=== PATIENT | male | born 1980 | race Caucasian/White ===

== ENCOUNTER 2018-06-12 11:29 | Emergency (ER) | payer BC ==
[2018-06-12] MEDS ORDERED: NA CHLORIDE 0.9% 1,000 ML ONE (13:04)
[2018-06-12 13:28] LABS: MCH 29.5 pg (27.0-35.0); MCV 86.5 fL (80-100); RBC Red Blood Cell Count 5.09 M/uL (4.33-5.43)
[2018-06-12 13:29] LABS: Absolute Lymphocytes (CBC) 2.5 K/uL (0.7-4.9); Absolute Monocytes 1.1 K/uL (0.1-1.3); Absolute Neutrophil 5.9 K/uL (1.8-8.0); Basophils % 0.2 % (0-1.3); Eosinophils % 1.8 % (0-4.4); Lymphocytes % 25.6 % (15.3-44.8); MPV 10.6 fL (7.6-11.3); Monocytes % 11.1 % (3.3-12.3)
[2018-06-12 14:02] LABS: ALT/SGPT 36 U/L (12-78); AST/SGOT 24 U/L (15-37); Albumin 3.6 g/dL (3.4-5.0); Alkaline Phosphatase 69 U/L (45-117); BUN Blood Urea Nitrogen 12 mg/dL (7-18); Bicarbonate 27 mmol/L (21-32); Bilirubin Direct < 0.1 mg/dL (0-0.2); Bilirubin Total 0.4 mg/dL (0.2-1.0); Glucose Level 105 mg/dL (74-106); Lipase 179 U/L (73-393); Potassium 4.2 mmol/L (3.5-5.1); Protein, Total 7.6 g/dL (6.4-8.2); Sodium Level 140 mmol/L (136-145)
--- NOTE | 2018-06-12 15:06 | RAD REPORT ---
EXAM DESCRIPTION: CT - Abdomen Pelvis W Contrast - 06/12/2018 2:17 pm CLINICAL HISTORY: Abdominal pain, pelvic pain, rectal bleeding COMPARISON: None. TECHNIQUE: Biphasic, helical CT imaging of the abdomen and pelvis was performed following 100 ml non -ionic IV contrast. No oral contrast. All CT scans are performed using dose optimization technique as appropriate and may include automated exposure control or mA/KV adjustment according to patient size. FINDINGS: A 13 millimeter round pulmonary nodule is present posterior lower right lung field with a dense central calcification. This has the typical appearance for a granuloma. No worrisome lung base finding. No pericardial effusion. Diffuse fatty infiltration of the liver present. No focal liver lesions seen. Spleen and pancreas cole w no suspicious findings. Gallbladder and biliary tree are also without suspicious finding. Symmetric renal function is seen with no hydronephrosis or suspicious renal mass. No pyelonephritis o r acute renal parenchymal process. New right adrenal abnormality. A 2 centimeter left adrenal mass is present showing 25 Hounsfield unit attenuation value. Contracted urinary bladder limits assessment. No bladder calculus. Prostate and seminal vesicles show no suspicious finding. No dilated bowel loops or bowel wall thickening. No appendicitis. No acute GI process seen. No free a ir, free fluid or inflammatory stranding. No mass or bulky lymphadenopathy. A very small umbilical h ernia present. No suspicious bony findings. IMPRESSION: No appendicitis, free air or other surgically emergent finding. No acute GI process seen . Diffuse fatty infiltration of the liver. The 2 centimeter left adrenal gland mass is present. Although the characteristics are not definitive, this is most likely an incidental adenoma.
--- NOTE | 2018-06-12 15:23 | EDPHYS ---
Physician Documentation [facility] Name: Ramon Thurman Age: 38 yrs Sex: Male : 1980 Arrival Date: 06/12/2018 Time: 11:31 Bed 13 Private MD: None, None ED Physician Ricky Coles HPI: 06/12 12:40 This 38 yrs old Male presents to ER via Ambulatory with complaints of Bloody jmm Stools, Abdominal Pain. 12:40 The patient presents to the emergency department with rectal bleeding, bright red blood jmm with bowel movement. Onset: The symptoms/episode began/occurred acutely, today. Abdominal pain: described as achy. Associated signs and symptoms: Pertinent negatives: diarrhea, fever. This is a 38 year old male with no chronic medical conditions that presents to the ED with abdominal pain and bright red blood on bowel movement earlier today. patient denies vomiting. states that he ate chicken last night. denies fever. . Historical: - Allergies: 12:01 No Known Allergies; sv - PMHx: 12:01 None; sv - PSHx: 12:01 None; sv - Immunization history:: Flu vaccine is not up to date. - Social history:: Smoking status: Patient uses tobacco products, cigars. - Ebola Screening: : No symptoms or risks identified at this time. ROS: 12:40 Constitutional: Negative for fever, chills, and weight loss, Cardiovascular: Negative jmm for chest pain, palpitations, and edema, Respiratory: Negative for shortness of breath, cough, wheezing, and pleuritic chest pain. 12:40 Back: Negative for injury and pain, : Negative for injury, bleeding, discharge, and swelling, MS/Extremity: Negative for injury and deformity, Skin: Negative for injury, rash, and discoloration, Neuro: Negative for headache, weakness, numbness, tingling, and seizure, Psych: Negative for depression, anxiety, suicide ideation, homicidal ideation, and hallucinations. 12:40 Abdomen/GI: Positive for rectal bleeding. 12:40 All other systems are negative. Exam: 12:40 Constitutional: This is a well developed, well nourished patient who is awake, alert, jmm and in no acute distress. Head/Face: atraumatic. Eyes: EOMI, no conjunctival erythema appreciated ENT: Moist Mucus Membranes Neck: Trachea midline, Supple Chest/axilla: Normal chest wall appearance and motion. Cardiovascular: Regular rate and rhythm. No edema appreciated Respiratory: Normal respirations, no respiratory distress appreciated 12:40 Back: Normal ROM Skin: General appearance color normal MS/ Extremity: Moves all extremities, no obvious deformities appreciated, no edema noted to the lower extremities Neuro: Awake and alert, normal gait Psych: Behavior is normal, Mood is normal, Patient is cooperative and pleasant 12:40 Abdomen/GI: Inspection: obese Bowel sounds: normal, Palpation: soft, nontender, in all quadrants, Rectal exam: Stool: grossly bloody. Vital Signs: 12:01 BP 155 / 96; Pulse 91; Resp 20; Temp 97.4; Pulse Ox 99% ; Weight 124.74 kg; Height 5 sv ft. 10 in. (177.80 cm); Pain 0/10; 13:00 BP 123 / 78; Pulse 75; Resp 16; Pulse Ox 100% on R/A; em 13:49 BP 121 / 76; Pulse 80; Resp 16; Pulse Ox 99% on R/A; Pain 0/10; em 15:00 BP 130 / 68; Pulse 82; Resp 16; Pulse Ox 99% on R/A; Pain 0/10; em 12:01 Body Mass Index 39.46 (124.74 kg, 177.80 cm) sv MDM: 12:37 Patient medically screened. [facility] 15:21 Data reviewed: vital signs, nurses notes. Counseling: I had a detailed discussion with donnie the patient and/or guardian regarding: the historical points, exam findings, and any diagnostic results supporting the discharge/admit diagnosis, lab results, radiology results, the need for outpatient follow up, to return to the emergency department if symptoms worsen or persist or if there are any questions or concerns that arise at home. 15:21 Data reviewed: lab test result(s), radiologic studies. [facility] 15:21 ED course: Patient's abdomen is benign. Ct negative. Hemodynamically stable. Normal VS. [facility] Patient advised to follow up with GI for further evaluation. Patient understood and agrees with the plan of care. . 06/12 12:43 Order name: Basic Metabolic Panel; Complete Time: 14:04 [facility] 06/12 12:43 Order name: CBC with Diff; Complete Time: 13:34 [facility] 06/12 12:43 Order name: Creatinine for Radiology; Complete Time: 14:04 [facility] 06/12 12:43 Order name: Hepatic Function; Complete Time: 14:04 [facility] 06/12 12:43 Order name: Lipase; Complete Time: 14:04 [facility] 06/12 12:43 Order name: Type And Screen; Complete Time: 14:40 [facility] 06/12 12:43 Order name: IV Saline Lock; Complete Time: 13:21 [facility] 06/12 12:43 Order name: Labs collected and sent; Complete Time: 13:21 [facility] 06/12 12:43 Order name: Hemacult; Complete Time: 13:21 [facility] 06/12 12:43 Order name: CT Abd/Pelvis - W/Contrast; Complete Time: 15:07 [facility] 06/12 13:18 Order name: Occult Blood--Ancillary; Complete Time: 13:31 bd 06/12 13:32 Order name: Occult Blood--Ancillary bd 06/12 13:48 Order name: ABO/RH no charge; Complete Time: 14:04 EDMS Administered Medications: 13:10 Drug: NS 0.9% 1000 ml Route: IV; Rate: 1 bolus; Site: right antecubital; em 14:30 Follow up: IV Status: Completed infusion; IV Intake: 1000ml em Disposition: 06/13 15:35 Co-signature as Attending Physician, Ricky Coles MD. Disposition: 06/12/18 15:22 Discharged to Home. Impression: Gastrointestinal hemorrhage, unspecified. - Condition is Stable. - Discharge Instructions: Gastrointestinal Bleeding, Rectal Bleeding, [id number]. - Prescriptions for Colace 100 mg Oral Tablet - take 1 tablet by ORAL route every 12 hours; 14 tablet. Anusol- HC 25 mg Rectal Suppository - insert 1 suppository by RECTAL route every 12 hours As needed; 20 suppository. - Medication Reconciliation Form, Thank You Letter, Antibiotic Education, Prescription Opioid Use form. - Follow up: Aman Asif MD; When: 2 - 3 days; Reason: Recheck today's complaints, Continuance of care, Re-evaluation by your physician. Signatures: Dispatcher [employer] EDMS Marcella Rodriguez RN RN Kingsley Bustillo PA PA Pietro Sutherland, GLASS BEVELER GLASS BEVELER em Ricky Coles MD MD Corrections: (The following items were deleted from the chart) 06/12 14:12 14:10 This 38 yrs old Male presents to ER via Ambulatory with complaints of jmm Bloody Stools, Abdominal Pain. jmm 15:41 15:22 06/12/2018 15:22 Discharged to Home. Impression: Gastrointestinal hemorrhage, em unspecified. Condition is Stable. Forms are Medication Reconciliation Form, Thank You Letter, Antibiotic Education, Prescription Opioid Use. Follow up: Aman Asif; When: 2 - 3 days; Reason: Recheck today's complaints, Continuance of care, Re-evaluation by your physician. jmm
--- NOTE | 2018-06-12 15:23 | ER ---
Nurse's Notes [facility] Name: Ramon Thurman Age: 38 yrs Sex: Male : 1980 Arrival Date: 06/12/2018 Time: 11:31 Bed 13 Private MD: None, None Diagnosis: Gastrointestinal hemorrhage, unspecified Presentation: 06/12 12:00 Presenting complaint: Patient states: c/o nausea, dark red rectal bleeding started sv today. Transition of care: patient was not received from another setting of care. Onset of symptoms was June 12, 2018. Care prior to arrival: None. 12:00 Method Of Arrival: Ambulatory sv 12:00 Acuity: MORRIS 3 sv 12:30 Risk Assessment: Do you want to hurt yourself or someone else? Patient reports no em desire to harm self or others. Initial Sepsis Screen: Does the patient meet any 2 criteria? No. Patient's initial sepsis screen is negative. Does the patient have a suspected source of infection? No. Patient's initial sepsis screen is negative. Triage Assessment: 12:00 General: Appears in no apparent distress. uncomfortable, Behavior is calm, cooperative, sv appropriate for age. Pain: Denies pain. Neuro: Level of Consciousness is awake, alert, obeys commands, Oriented to person, place, time, situation, Moves all extremities. Full function Gait is steady. Respiratory: Respiratory effort is even, unlabored, Respiratory pattern is regular, symmetrical. GI: Reports diarrhea, rectal bleeding, nausea. Historical: - Allergies: 12:01 No Known Allergies; sv - PMHx: 12:01 None; sv - PSHx: 12:01 None; sv - Immunization history:: Flu vaccine is not up to date. - Social history:: Smoking status: Patient uses tobacco products, cigars. - Ebola Screening: : No symptoms or risks identified at this time. Screenin:17 Abuse screen: Denies threats or abuse. Nutritional screening: No deficits noted. em Tuberculosis screening: No symptoms or risk factors identified. Fall Risk None identified. Assessment: 12:30 General: Appears in no apparent distress. comfortable, Behavior is calm, cooperative. em Pain: Denies pain. Neuro: Level of Consciousness is awake, alert, obeys commands, Oriented to person, place, time, situation, Speech is normal, Denies weakness dizziness. Cardiovascular: Capillary refill < 3 seconds Patient's skin is warm and dry. Respiratory: Airway is patent Respiratory effort is even, unlabored, Respiratory pattern is regular, symmetrical. GI: Abdomen is round non-distended, Bowel sounds present X 4 quads. Reports bloody stool, Patient currently denies nausea, vomiting. : No signs and/or symptoms were reported regarding the genitourinary system. EENT: No signs and/or symptoms were reported regarding the EENT system. Derm: Skin is intact, Skin is pink, warm \T\ dry. Musculoskeletal: Capillary refill < 3 seconds, Range of motion: intact in all extremities. 12:30 Reassessment: I agree with assessment completed by Pietro Muller LVN . aa5 13:48 Reassessment: Patient appears in no apparent distress at this time. Patient and/or em family updated on plan of care and expected duration. Pain level reassessed. Patient is alert, oriented x 3, equal unlabored respirations, skin warm/dry/pink. Patient denies pain at this time. 15:09 Reassessment: Patient appears in no apparent distress at this time. Patient and/or em family updated on plan of care and expected duration. Pain level reassessed. Patient is alert, oriented x 3, equal unlabored respirations, skin warm/dry/pink. Patient denies pain at this time. Vital Signs: 12:01 BP 155 / 96; Pulse 91; Resp 20; Temp 97.4; Pulse Ox 99% ; Weight 124.74 kg; Height 5 sv ft. 10 in. (177.80 cm); Pain 0/10; 13:00 BP 123 / 78; Pulse 75; Resp 16; Pulse Ox 100% on R/A; em 13:49 BP 121 / 76; Pulse 80; Resp 16; Pulse Ox 99% on R/A; Pain 0/10; em 15:00 BP 130 / 68; Pulse 82; Resp 16; Pulse Ox 99% on R/A; Pain 0/10; em 12:01 Body Mass Index 39.46 (124.74 kg, 177.80 cm) sv ED Course: 11:31 Patient arrived in ED. mr 11:32 None, None is Private Physician. mr 12:01 Triage completed. sv 12:01 Arm band placed on. sv 12:02 Kingsley Avendano PA is PHCP. jmm 12:02 Ricky Coles MD is Attending Physician. m 12:17 Pietro Muller LVN is Primary Nurse. em 12:17 Patient has correct armband on for positive identification. Placed in gown. Bed in low em position. Call light in reach. 13:00 Initial lab(s) drawn, by me, sent to lab. Inserted saline lock: 20 gauge in right em antecubital area, using aseptic technique. Blood collected. 13:37 Radiology exam delayed due to lab results not completed at this time. (BUN/Creatinine). bq 14:15 CT completed. Patient moved to CT via wheelchair. Patient moved back from CT. bq 14:16 CT Abd/Pelvis - W/Contrast In Process Unspecified. EDMS 15:21 Aman Asif MD is Referral Physician. m 15:38 No provider procedures requiring assistance completed. IV discontinued, intact, em bleeding controlled, No redness/swelling at site. Pressure dressing applied. Administered Medications: 13:10 Drug: NS 0.9% 1000 ml Route: IV; Rate: 1 bolus; Site: right antecubital; em 14:30 Follow up: IV Status: Completed infusion; IV Intake: 1000ml em Intake: 14:30 IV: 1000ml; Total: 1000ml. em Outcome: 15:22 Discharge ordered by . m 15:38 Discharged to home ambulatory, with family. em 15:38 Condition: good 15:38 Discharge instructions given to patient, family, Instructed on discharge instructions, follow up and referral plans. medication usage, Demonstrated understanding of instructions, follow-up care, medications, Prescriptions given X 2. 15:41 Patient left the ED. em Signatures: Dispatcher [employer] EDCA Marcella Rodriguez, RN Kingsley Mantilla PA PA [facility] Celine Guevara Betty Pietro Muller, MIXING TUMBLER OPERATOR MIXING TUMBLER OPERATOR em Adele Hernández, RN RN aa5
== END 2018-06-12 15:41 | disposition home or self-care (01) ==
LOC: ER 11:29
DX: K92.2 Gastrointestinal hemorrhage, unspecified (principal); F17.290 Nicotine dependence, other tobacco product, uncomplicated
CPT/HCPCS: 36415; 74177; 80048; 80076; 82272; 83690; 85025; 86850; 86900; 86901; 96360; 99284; J7030; Q9967

== ENCOUNTER 2018-09-11 02:58 | Emergency (ER) | payer BC ==
[2018-09-11] MEDS ORDERED: ACETAMINOPHEN 325 MG TABLET ONE (04:05)
--- NOTE | 2018-09-11 05:32 | ER ---
Nurse's Notes [facility] Name: Ramon Thurman Age: 38 yrs Sex: Male : 1980 Arrival Date: 09/11/2018 Time: 03:02 Bed 7 Private MD: Diagnosis: Lobar pneumonia, unspecified organism;Fever presenting with conditions classified elsewhere Presentation: 09/11 03:10 Presenting complaint: Patient states: Productive cough, sore throat x 2 days; States lp1 unable to lay down to sleep due to nasal drainage to back of throat. Transition of care: patient was not received from another setting of care. Onset of symptoms was September 11, 2018. Risk Assessment: Do you want to hurt yourself or someone else? Patient reports no desire to harm self or others. Care prior to arrival: None. 03:10 Method Of Arrival: Ambulatory lp1 03:10 Acuity: MORRIS 4 lp1 05:41 Initial Sepsis Screen: Does the patient meet any 2 criteria? No. Patient's initial ed1 sepsis screen is negative. Does the patient have a suspected source of infection? No. Patient's initial sepsis screen is negative. Historical: - Allergies: 03:14 No Known Allergies; lp1 - Home Meds: 03:14 None [Active]; lp1 - PMHx: 03:14 None; lp1 - PSHx: 03:14 None; lp1 - Immunization history:: Adult Immunizations up to date. - Social history:: Smoking status: Patient uses tobacco products, denies chronic smoking, but will smoke occasionally. - Ebola Screening: : No symptoms or risks identified at this time. Screenin:14 Abuse screen: Denies threats or abuse. Denies injuries from another. Nutritional lp1 screening: No deficits noted. Tuberculosis screening: No symptoms or risk factors identified. Fall Risk None identified. Assessment: 03:15 General: Appears uncomfortable, Behavior is calm, cooperative. Pain: Complains of pain ed1 in chest Pain does not radiate. Pain currently is 4 out of 10 on a pain scale. Quality of pain is described as aching, Pain began 2-3 days ago. Aggravated by coughing. Neuro: Level of Consciousness is awake, alert, obeys commands, Oriented to person, place, time, situation. Cardiovascular: Heart tones S1 S2 present. Respiratory: Reports cough that is productive, Airway is patent Respiratory effort is even, unlabored, Respiratory pattern is regular, symmetrical, Breath sounds are clear bilaterally. GI: No signs and/or symptoms were reported involving the gastrointestinal system. : No signs and/or symptoms were reported regarding the genitourinary system. EENT: Throat is reddened. Derm: Skin is intact, is healthy with good turgor, Skin is dry, Skin is pink, warm \T\ dry. Skin temperature is hot. Musculoskeletal: Circulation, motion, and sensation intact. 04:39 Reassessment: Patient appears in no apparent distress at this time. No changes from ed1 previously documented assessment. Patient and/or family updated on plan of care and expected duration. Pain level reassessed. Patient is alert, oriented x 3, equal unlabored respirations, skin warm/dry/pink. Patient states symptoms have not improved. 05:38 Reassessment: Patient appears in no apparent distress at this time. Patient and/or ed1 family updated on plan of care and expected duration. Pain level reassessed. Patient is alert, oriented x 3, equal unlabored respirations, skin warm/dry/pink. Patient states symptoms have not improved. Vital Signs: 03:10 BP 128 / 80; Pulse 102; Resp 18; Temp 102(O); Pulse Ox 96% on R/A; Weight 129.27 kg lp1 (R); Height 5 ft. 10 in. (177.80 cm); Pain 4/10; 04:39 BP 124 / 86; Pulse 93; Resp 18; Temp 99.9(O); Pulse Ox 97% on R/A; Pain 4/10; ed1 04:39 Temp 99.9(O); ed1 05:38 BP 126 / 74; Pulse 86; Resp 20; Temp 98.5(O); Pulse Ox 100% on R/A; Pain 4/10; ed1 03:10 Body Mass Index 40.89 (129.27 kg, 177.80 cm) lp1 ED Course: 03:02 Patient arrived in ED. es 03:08 Ricky Coles MD is Attending Physician. gs 03:10 Arm band placed on left wrist. lp1 03:13 Triage completed. lp1 03:15 Patient has correct armband on for positive identification. Placed in gown. Bed in low ed1 position. Call light in reach. 04:17 Rodriguez, Essence, RN is Primary Nurse. ed1 04:18 Patient moved to radiology via wheelchair. sg4 04:20 XRAY Chest Pa And Lat (2 Views) In Process Unspecified. EDMS 05:38 No provider procedures requiring assistance completed. Patient did not have IV access ed1 during this emergency room visit. Administered Medications: 03:58 Drug: Tylenol 650 mg Route: PO; ed1 04:39 Follow up: Temp 99.9 Oral; Response: No adverse reaction; Temperature is decreased ed1 Outcome: 05:31 Discharge ordered by . gs 05:38 Discharged to home ambulatory, with significant other. ed1 05:38 Condition: good 05:38 Discharge instructions given to patient, Instructed on discharge instructions, follow up and referral plans. medication usage, Demonstrated understanding of instructions, follow-up care, medications, Prescriptions given X 3. 05:42 Patient left the ED. ed1 Signatures: Dispatcher [employer] EDMS Brook Urbina Erika, RN RN ed1 Rosa Marshall RN RN lp1 Ricky Coles MD MD gs Garcia, Susana sg4
--- NOTE | 2018-09-11 05:32 | EDPHYS ---
Physician Documentation [facility] Name: Ramon Thurman Age: 38 yrs Sex: Male : 1980 Arrival Date: 09/11/2018 Time: 03:02 Bed 7 Private MD: ED Physician Rciky Coles HPI: 09/11 05:29 This 38 yrs old Male presents to ER via Ambulatory with complaints of Painful gs Cough, Sore Throat. 05:29 The patient or guardian reports cough. Onset: The symptoms/episode began/occurred 2 gs day(s) ago. Severity of symptoms: At their worst the symptoms were moderate, in the emergency department the symptoms are unchanged. Modifying factors: the symptoms are aggravated by cold weather. Associated signs and symptoms: Pertinent positives: fever. The patient has experienced similar episodes in the past, a few times. Historical: - Allergies: 03:14 No Known Allergies; lp1 - Home Meds: 03:14 None [Active]; lp1 - PMHx: 03:14 None; lp1 - PSHx: 03:14 None; lp1 - Immunization history:: Adult Immunizations up to date. - Social history:: Smoking status: Patient uses tobacco products, denies chronic smoking, but will smoke occasionally. - Ebola Screening: : No symptoms or risks identified at this time. ROS: 05:29 All other systems are negative. gs Exam: 05:29 Head/Face: Normocephalic, atraumatic. Eyes: Pupils equal round and reactive to light, gs extra-ocular motions intact. Lids and lashes normal. Conjunctiva and sclera are non-icteric and not injected. Cornea within normal limits. Periorbital areas with no swelling, redness, or edema. ENT: Nares patent. No nasal discharge, no septal abnormalities noted. Tympanic membranes are normal and external auditory canals are clear. Oropharynx with no redness, swelling, or masses, exudates, or evidence of obstruction, uvula midline. Mucous membranes moist. Neck: Trachea midline, no thyromegaly or masses palpated, and no cervical lymphadenopathy. Supple, full range of motion without nuchal rigidity, or vertebral point tenderness. No Meningismus. Chest/axilla: Normal chest wall appearance and motion. Nontender with no deformity. No lesions are appreciated. Cardiovascular: Regular rate and rhythm with a normal S1 and S2. No gallops, murmurs, or rubs. Normal PMI, no JVD. No pulse deficits. Abdomen/GI: Soft, non-tender, with normal bowel sounds. No distension or tympany. No guarding or rebound. No evidence of tenderness throughout. Back: No spinal tenderness. No costovertebral tenderness. Full range of motion. Skin: Warm, dry with normal turgor. Normal color with no rashes, no lesions, and no evidence of cellulitis. MS/ Extremity: Pulses equal, no cyanosis. Neurovascular intact. Full, normal range of motion. Neuro: Awake and alert, GCS 15, oriented to person, place, time, and situation. Cranial nerves II-XII grossly intact. Motor strength 5/5 in all extremities. Sensory grossly intact. Cerebellar exam normal. Normal gait. 05:29 Constitutional: The patient appears alert, awake. 05:29 Respiratory: the patient does not display signs of respiratory distress, Breath sounds: rales, that are mild, are located in both bases. Vital Signs: 03:10 BP 128 / 80; Pulse 102; Resp 18; Temp 102(O); Pulse Ox 96% on R/A; Weight 129.27 kg lp1 (R); Height 5 ft. 10 in. (177.80 cm); Pain 4/10; 04:39 BP 124 / 86; Pulse 93; Resp 18; Temp 99.9(O); Pulse Ox 97% on R/A; Pain 4/10; ed1 04:39 Temp 99.9(O); ed1 05:38 BP 126 / 74; Pulse 86; Resp 20; Temp 98.5(O); Pulse Ox 100% on R/A; Pain 4/10; ed1 03:10 Body Mass Index 40.89 (129.27 kg, 177.80 cm) lp1 MDM: 03:48 Patient medically screened. 05:29 Differential Diagnosis: Bronchitis Influenza Upper Respiratory Infection Pneumonia. Data reviewed: vital signs, nurses notes. Response to treatment: the patient's symptoms have markedly improved after treatment. 09/11 03:51 Order name: Flu; Complete Time: 05:33 09/11 03:51 Order name: XRAY Chest Pa And Lat (2 Views) 09/11 05:34 Interpretation: Abnormal: Ll. Administered Medications: 03:58 Drug: Tylenol 650 mg Route: PO; ed1 04:39 Follow up: Temp 99.9 Oral; Response: No adverse reaction; Temperature is decreased ed1 Disposition: 09/11/18 05:31 Discharged to Home. Impression: Lobar pneumonia, unspecified organism, Fever presenting with conditions classified elsewhere. - Condition is Stable. - Discharge Instructions: Fever, Adult, Community-Acquired Pneumonia, Adult. - Prescriptions for Keflex 500 mg Oral Capsule - take 2 capsule by ORAL route every 12 hours for 7 days; 28 capsule. Zithromax Z- Hunter 250 mg Oral Tablet - take 1 tablet by ORAL route as directed for 5 days Day 1 - take two (2) tablets one time. Day 2, 3, 4 , 5 take one (1) tablet once daily.; 6 tablet. Albuterol Sulfate 90 mcg/actuation - inhale 1-2 puff by INHALATION route every 4-6 hours; 1 Inhaler. - Work release form, Medication Reconciliation Form, Thank You Letter, Antibiotic Education, Prescription Opioid Use form. - Follow up: Private Physician; When: 2 - 3 days; Reason: Re-evaluation by your physician. Signatures: Dispatcher [employer] EDMS Essence Rodriguez RN RN ed1 Rosa Marshall RN RN lp1 Ricky Coles MD MD gs Corrections: (The following items were deleted from the chart) 05:42 05:31 09/11/2018 05:31 Discharged to Home. Impression: Lobar pneumonia, unspecified ed1 organism; Fever presenting with conditions classified elsewhere. Condition is Stable. Forms are Medication Reconciliation Form, Thank You Letter, Antibiotic Education, Prescription Opioid Use. Follow up: Private Physician; When: 2 - 3 days; Reason: Re-evaluation by your physician. gs
--- NOTE | 2018-09-11 11:00 | RAD REPORT ---
EXAM DESCRIPTION: Benigno Zafar And Chas (2 Views)09/11/2018 4:22 am CLINICAL HISTORY: Cough COMPARISON: None FINDINGS: An 11 millimeter right lower lobe nodules is without obvious change from prior CT abdomen . It was shown to contain a central calcification The left lung appears clear of acute infiltrate. The heart is normal size IMPRESSION: 11 millimeter right lower lobe nodule likely is benign. Follow up chest x-ray in 6 month s recommended to assess stability
== END 2018-09-11 05:42 | disposition home or self-care (01) ==
LOC: ER 02:58
DX: J18.1 Lobar pneumonia, unspecified organism (principal); R50.81 Fever presenting with conditions classified elsewhere; Z72.0 Tobacco use
CPT/HCPCS: 71046; 87804; 99283

== ENCOUNTER 2018-10-30 22:11 | Emergency (ER) | payer BC ==
--- OUTSIDE RECORDS SUMMARY | 2018-10-30 22:14 | XMS REPORT ---
:1980 Author Organization e[employer] Care Team Providers Name Role Phone Laron Serrato Provider Role Unavailable Allergies, Adverse Reactions, Alerts Substance Reaction Event Type N.K.D.A. Info Not Available Non Drug Allergy Problems Problem Type Condition Code Onset Dates Condition Status Assessment Decreased libido R68.82 Active Assessment Fatigue, unspecified type R53.83 Active Problem Adult BMI 39.0-39.9 kg/sq m Z68.39 Active Problem Tobacco use disorder F17.200 Active Assessment Adult BMI 39.0-39.9 kg/sq m Z68.39 Active Assessment Need for Tdap vaccination Z23 Active Assessment Well adult on routine health check Z00.00 Active Assessment Tobacco use disorder F17.200 Active Medications No Known Medications Results No Known Results Immunizations Vaccine Administration Date TDAP > 7 Years-Adacel Sep 14, 2018 Summary Purpose [employer]ClinicalWorks Submission
--- OUTSIDE RECORDS SUMMARY | 2018-10-30 22:14 | XMS REPORT ---
:1980 Author Organization [employer] Care Team Providers Name Role Phone Sue Serratoh Provider Role Unavailable Allergies, Adverse Reactions, Alerts Substance Reaction Event Type N.K.D.A. Info Not Available Non Drug Allergy Problems Problem Type Condition Code Onset Dates Condition Status Assessment Fatigue, unspecified type R53.83 Active Assessment Tobacco use disorder F17.200 Active Assessment Adult BMI 39.0-39.9 kg/sq m Z68.39 Active Problem Mixed hyperlipidemia E78.2 Active Problem Tobacco use disorder F17.200 Active Problem Vitamin D deficiency E55.9 Active Assessment Mixed hyperlipidemia E78.2 Active Assessment Vitamin D deficiency E55.9 Active Problem Adult BMI 39.0-39.9 kg/sq m Z68.39 Active Medications Medication Code System Code Instructions Start End Date Status Dosage Date Vitamin D3 [facility] [id number] UNIT Orally Oct 11, Active 1 capsule Once a week x 12 2019 weeks Results No Known Results Summary Purpose eClinicalWorks Submission
[2018-10-31] MEDS ORDERED: ALBUTEROL 2.5 MG/3 ML NEB SOL ONE (01:19)
[2018-10-31] MEDS ORDERED: GUAIFENESIN/DM 5 ML UCUP ONE (01:20)
--- NOTE | 2018-10-31 01:47 | ER ---
Nurse's Notes [facility] Name: Ramon Thurman Age: 38 yrs Sex: Male : 1980 Arrival Date: 10/30/2018 Time: 22:12 Bed 23 Private MD: Laron Serrato Diagnosis: Acute bronchitis Presentation: 10/30 22:30 Presenting complaint: Patient states: he started getting a cold Wednesday evening ran bb fever from Wednesday thru Wednesday with chills has cough and congestion which feels like it has moved into his chest. Transition of care: patient was not received from another setting of care. Onset of symptoms was October 24, 2018. Risk Assessment: Do you want to hurt yourself or someone else? Patient reports no desire to harm self or others. Initial Sepsis Screen: Does the patient meet any 2 criteria? No. Patient's initial sepsis screen is negative. Does the patient have a suspected source of infection? No. Patient's initial sepsis screen is negative. Care prior to arrival: None. 22:30 Method Of Arrival: Ambulatory bb 22:30 Acuity: MORRIS 3 bb Historical: - Allergies: 22:32 No Known Allergies; bb - Home Meds: 22:32 None [Active]; bb - PMHx: 22:32 None; bb - PSHx: 22:32 None; bb - Immunization history:: Adult Immunizations up to date, Flu vaccine is not up to date. - Social history:: Smoking status: Patient uses tobacco products, cigars. - Ebola Screening: : No symptoms or risks identified at this time. Screenin:03 Abuse screen: none noted. Nutritional screening: No deficits noted. Tuberculosis jl3 screening: No symptoms or risk factors identified. Fall Risk None identified. Assessment: 23:00 General: Appears distressed, uncomfortable, obese, Behavior is cooperative, Reports jl3 fatigue for 2-3 days, Pt states began feeling weak 1 week ago. On Wednesday, states began coughing. Current cough with sore throat. . Pain: Complains of pain in chest Pain does not radiate. Pain began 2-3 days ago. Pt states pain r/t cough. Neuro: No deficits noted. Cardiovascular: No deficits noted. Respiratory: Reports cough that is productive, persistent since Pt states cough began >3 days ago. GI: No deficits noted. : No deficits noted. EENT: Reports pain in left mandible when swallowing Pain is 6 out of 10 on a pain scale. since >3 days. Pt c/i sore throat, cough. Denies fever. Derm: No deficits noted. Vital Signs: 22:32 BP 139 / 84; Pulse 87; Resp 18 S; Temp 98.1(O); Pulse Ox 96% on R/A; Weight 124.74 kg bb (R); Height 5 ft. 10 in. (177.80 cm) (R); Pain 6/10; 10/31 00:46 BP 136 / 80; Pulse 84; Resp 20; Pulse Ox 95% ; Pain 3/10; mw 02:50 BP 129 / 79; Pulse 88; Resp 18; Pulse Ox 96% ; Pain 0/10; jl3 10/30 22:32 Body Mass Index 39.46 (124.74 kg, 177.80 cm) bb ED Course: 10/30 22:12 Patient arrived in ED. am2 22:12 Laron Serrato DO is Private Physician. am2 22:32 Triage completed. bb 22:32 Arm band placed on Patient placed in waiting room, Patient notified of wait time. bb 22:54 Alek Cervantes, RN is Primary Nurse. jl3 22:59 Ricky Coles MD is Attending Physician. gs 23:04 Patient has correct armband on for positive identification. Pulse ox on. jl3 10/31 00:04 EKG done, by ED staff, reviewed by Ricky Coles MD. jp3 00:18 Patient moved to radiology via wheelchair. kw 00:18 X-ray completed. Patient tolerated procedure well. kw 00:18 Patient moved back from radiology. kw 00:25 XRAY Chest Pa And Lat (2 Views) In Process Unspecified. EDMS 02:49 No provider procedures requiring assistance completed. Patient did not have IV access jl3 during this emergency room visit. Patient maintains SpO2 saturation greater than 95% on room air. Administered Medications: 01:12 Drug: Albuterol 2.5 mg Route: Inhalation; jl3 01:12 Drug: Robitussin Pediatric 10 mg Route: PO; jl3 02:50 Follow up: Response: No adverse reaction jl3 Outcome: 01:46 Discharge ordered by . gs 02:50 Discharged to home ambulatory. jl3 02:50 Condition: stable 02:50 Discharge instructions given to patient, Prescriptions given X 4. 02:51 Patient left the ED. jl3 Signatures: Dispatcher [employer] EDMS Karime Leslie, Jahaira Matias RN, RN RN bb Whitley, Kimberlee kw Lowman, John, RN RN jl3 Day Jimenez am2 Ricky Coles MD MD Antony Bridges jp3
--- NOTE | 2018-10-31 01:47 | EDPHYS ---
Physician Documentation [facility] Name: Ramon Thurman Age: 38 yrs Sex: Male : 1980 Arrival Date: 10/30/2018 Time: 22:12 Bed 23 Private MD: [facility] ED Physician Ricky Coles HPI: 10/31 02:50 This 38 yrs old Male presents to ER via Ambulatory with complaints of Cough. gs 02:50 The patient or guardian reports cough, that is intermittent. Onset: The gs symptoms/episode began/occurred 5 day(s) ago. Severity of symptoms: At their worst the symptoms were moderate, in the emergency department the symptoms are unchanged. Modifying factors: The symptoms are alleviated by nothing, the symptoms are aggravated by smoke. Associated signs and symptoms: Pertinent positives: chest pain, with cough, Pertinent negatives: fever. The patient has experienced similar episodes in the past, a few times. Historical: - Allergies: 10/30 22:32 No Known Allergies; bb - Home Meds: 22:32 None [Active]; bb - PMHx: 22:32 None; bb - PSHx: 22:32 None; bb - Immunization history:: Adult Immunizations up to date, Flu vaccine is not up to date. - Social history:: Smoking status: Patient uses tobacco products, cigars. - Ebola Screening: : No symptoms or risks identified at this time. ROS: 10/31 02:50 All other systems are negative. gs Exam: 02:50 Head/Face: Normocephalic, atraumatic. Eyes: Pupils equal round and reactive to light, gs extra-ocular motions intact. Lids and lashes normal. Conjunctiva and sclera are non-icteric and not injected. Cornea within normal limits. Periorbital areas with no swelling, redness, or edema. ENT: Nares patent. No nasal discharge, no septal abnormalities noted. Tympanic membranes are normal and external auditory canals are clear. Oropharynx with no redness, swelling, or masses, exudates, or evidence of obstruction, uvula midline. Mucous membranes moist. Neck: Trachea midline, no thyromegaly or masses palpated, and no cervical lymphadenopathy. Supple, full range of motion without nuchal rigidity, or vertebral point tenderness. No Meningismus. Chest/axilla: Normal chest wall appearance and motion. Nontender with no deformity. No lesions are appreciated. Cardiovascular: Regular rate and rhythm with a normal S1 and S2. No gallops, murmurs, or rubs. Normal PMI, no JVD. No pulse deficits. Abdomen/GI: Soft, non-tender, with normal bowel sounds. No distension or tympany. No guarding or rebound. No evidence of tenderness throughout. Back: No spinal tenderness. No costovertebral tenderness. Full range of motion. Skin: Warm, dry with normal turgor. Normal color with no rashes, no lesions, and no evidence of cellulitis. MS/ Extremity: Pulses equal, no cyanosis. Neurovascular intact. Full, normal range of motion. Neuro: Awake and alert, GCS 15, oriented to person, place, time, and situation. Cranial nerves II-XII grossly intact. Motor strength 5/5 in all extremities. Sensory grossly intact. Cerebellar exam normal. Normal gait. 02:50 Constitutional: The patient appears alert, awake. 02:50 Respiratory: the patient does not display signs of respiratory distress, Respirations: normal, symetrical, no tachypnea, Breath sounds: rhonchi, that are mild, are scattered. 02:50 ECG was reviewed by the Attending Physician. Vital Signs: 10/30 22:32 BP 139 / 84; Pulse 87; Resp 18 S; Temp 98.1(O); Pulse Ox 96% on R/A; Weight 124.74 kg bb (R); Height 5 ft. 10 in. (177.80 cm) (R); Pain 6/10; 10/31 00:46 BP 136 / 80; Pulse 84; Resp 20; Pulse Ox 95% ; Pain 3/10; mw 02:50 BP 129 / 79; Pulse 88; Resp 18; Pulse Ox 96% ; Pain 0/10; jl3 10/30 22:32 Body Mass Index 39.46 (124.74 kg, 177.80 cm) bb MDM: 10/30 23:11 Patient medically screened. 10/31 02:50 Differential Diagnosis: Bronchitis Influenza Upper Respiratory Infection Viral Syndrome gs Pneumonia. Data reviewed: vital signs, nurses notes, lab test result(s), EKG, radiologic studies. Counseling: I had a detailed discussion with the patient and/or guardian regarding: the historical points, exam findings, and any diagnostic results supporting the discharge/admit diagnosis, lab results, radiology results, the need for outpatient follow up. Response to treatment: the patient's symptoms have markedly improved after treatment. 10/30 22:34 Order name: Flu; Complete Time: 00:45 10/30 22:34 Order name: Strep; Complete Time: 00:45 10/30 23:14 Order name: XRAY Chest Pa And Lat (2 Views) 10/30 23:17 Order name: Throat Culture [facility] 10/30 23:14 Order name: EKG - Nurse/Tech; Complete Time: 00:04 EC:50 Rate is 72 beats/min. Rhythm is regular. WI interval is normal. QRS interval is normal. No Q waves. T waves are Normal. No ST changes noted. Clinical impression: Normal ECG. Interpreted by me. Administered Medications: 01:12 Drug: Albuterol 2.5 mg Route: Inhalation; jl3 01:12 Drug: Robitussin Pediatric 10 mg Route: PO; jl3 02:50 Follow up: Response: No adverse reaction jl3 Disposition: 10/31/18 01:46 Discharged to Home. Impression: Acute bronchitis. - Condition is Stable. - Discharge Instructions: Acute Bronchitis, Adult, Managing Your Hypertension. - Prescriptions for Prednisone 20 mg Oral Tablet - take 1 tablet by ORAL route once daily for 5 days; 5 tablet. Albuterol Sulfate 2.5 mg /3 mL (0.083 %) Inhalation Solution for Nebulization - inhale 1 unit by NEBULIZATION route every 8 hours As needed; 1 box. Zithromax Z- Hunter 250 mg Oral Tablet - take 1 tablet by ORAL route as directed for 5 days Day 1 - take two (2) tablets one time. Day 2, 3, 4 , 5 take one (1) tablet once daily.; 6 tablet. Albuterol Sulfate 90 mcg/actuation - inhale 1-2 puff by INHALATION route every 4-6 hours; 1 Inhaler. - Medication Reconciliation Form, Thank You Letter, Antibiotic Education, Prescription Opioid Use form. - Follow up: Private Physician; When: 2 - 3 days; Reason: Re-evaluation by your physician. - Problem is an acute exacerbation. - Symptoms have improved. Signatures: Dispatcher [employer] [facility] Jahaira Benavidez RN RN bb Alek Cervantes RN RN jl3 Ricky Coles MD MD gs Corrections: (The following items were deleted from the chart) 01:47 01:46 10/31/2018 01:46 Discharged to Home. Impression: Acute bronchitis. Condition is gs Stable. Forms are Medication Reconciliation Form, Thank You Letter, Antibiotic Education, Prescription Opioid Use. Follow up: Private Physician; When: 2 - 3 days; Reason: Re-evaluation by your physician. 02:51 01:47 10/31/2018 01:46 Discharged to Home. Impression: Acute bronchitis. Condition is jl3 Stable. Forms are Medication Reconciliation Form, Thank You Letter, Antibiotic Education, Prescription Opioid Use. Follow up: Private Physician; When: 2 - 3 days; Reason: Re-evaluation by your physician. Problem is an acute exacerbation. Symptoms have improved. gs
--- NOTE | 2018-10-31 08:38 | RAD REPORT ---
EXAM DESCRIPTION: [place] Pa And Lat (2 Views)10/31/2018 12:24 am CLINICAL HISTORY: Cough COMPARISON: May 2018 CT FINDINGS: A 13 millimeter partially calcified right lower lobe nodule is unchanged. Left lung appea rs clear. The heart is normal size IMPRESSION: 13 millimeter partially calcified right lower lobe none nodule unchanged from June 04 likely benign. Follow-up chest x-ray May 2019 recommended to reassess stability
--- NOTE | 2018-10-31 12:19 | EKG ---
Test Date: 2018-10-31 Test Time: 00:01:32 [place] [employer]iff: ANUEL MEASUREMENT RESULTS: Intervals: Rate: 72 OR: 148 QRSD: 86 QT: 366 QTc: 400 [place]: P: 20 OR: 148 QRS: 23 T: 44 INTERPRETIVE STATEMENTS: Normal sinus rhythm Normal ECG No previous ECG available for comparison Electronically Signed On 10-31-18 12:18:23 CDT by Jared Kraft
== END 2018-10-31 02:51 | disposition home or self-care (01) ==
LOC: ER 22:11
DX: J20.9 Acute bronchitis, unspecified (principal); Z72.0 Tobacco use
CPT/HCPCS: 71046; 87070; 87081; 87804; 93005; 99285

== ENCOUNTER 2023-12-24 17:38 | Emergency (ER) | payer BC ==
[2023-12-24] MEDS ORDERED: NA CHLORIDE 0.9% 1,000 ML ONE (18:14)
[2023-12-24 18:20] LABS: Absolute Basophils 0.1 K/uL (0-0.5); Absolute Eosinophils 0.1 K/uL (0-0.5); Absolute Lymphocytes (CBC) 1.1 K/uL (0.7-4.9); Absolute Monocytes 0.6 K/uL (0.1-1.3); Absolute Neutrophil 8.1 K/uL (1.8-8.0); Basophils % 1.2 % (0-1.3); Eosinophils % 0.6 % (0-4.4); Hematocrit 46.6 % (39.6-49.0); Hemoglobin 15.8 g/dL (13.6-17.9); Lymphocytes % 10.6 % (15.3-44.8); MCV 88.2 fL (80-100); MPV 10.6 fL (7.6-11.3); Monocytes % 5.8 % (3.3-12.3); Neutrophils % 81.8 % (41.7-73.7); Nucleated Red Blood Cells % 0.1 % (0-0); Platelets 171 thou/uL (152-406); RBC Red Blood Cell Count 5.28 M/uL (4.33-5.43); Red Cell Distribution Width 15.6 % (12.1-15.2)
[2023-12-24 18:26] LABS: PT Prothrombin Time 11.7 SECONDS (9.5-12.5); PTT, Activated Partial Thromb 38.1 SECONDS (24.3-36.9); Protime INR 1.07
[2023-12-24 18:35] LABS: Barbiturates NEGATIVE (NEGATIVE); Benzodiazepines NEGATIVE (NEGATIVE); Cocaine NEGATIVE (NEGATIVE); METHAMPHETAM NEGATIVE (NEGATIVE); Methadone NEGATIVE (NEGATIVE); Opiates NEGATIVE (NEGATIVE); Phencyclidine NEGATIVE (NEGATIVE); THC Cannibis NEGATIVE (NEGATIVE)
[2023-12-24 18:37] LABS: ALT/SGPT 60 U/L (16-61); AST/SGOT 23 U/L (15-37); Albumin 3.9 g/dL (3.4-5.0); Albumin/Globulin Ratio 0.9 (1.1-1.8); Alkaline Phosphatase 83 U/L (45-117); Anion Gap 8.8 mEq/L (5.0-15.0); BUN Blood Urea Nitrogen 12 mg/dL (7-18); Bicarbonate 25 mEq/L (21-32); Bilirubin Direct 0.2 mg/dL (0-0.2); Bilirubin Indirect, Calculated 0.4 mg/dL (0.2-0.8); Bilirubin Total 0.6 mg/dL (0.2-1.0); Globulin 4.2 g/dL (2.3-3.5); Glomerular Filtration Rate 98 ml/min (=/>90); Glucose Level 108 mg/dL (74-106); Potassium 3.8 mEq/L (3.5-5.1); Protein, Total 8.1 g/dL (6.4-8.2); Sodium Level 134 mEq/L (136-145)
[2023-12-24 18:37] LABS: Specific Gravity > 1.030 (1.005-1.030); Sqamous Epithelial <5 /HPF (None Seen); Urine Bacteria None Seen /HPF (<20); Urine Bilirubin NEGATIVE (Negative); Urine Blood Negative (Negative); Urine Clarity Clear (Clear); Urine Color Yellow (Yellow); Urine Culture Reflex Order NOT NEEDED; Urine Glucose NEGATIVE (Negative); Urine Ketones 2+ (Negative); Urine Microscopic Reflex YN ORDER UMIC; Urine Mucus 1+ /HPF (None Seen); Urine Nitrite NEGATIVE (Negative); Urine Protein TRACE (Negative); Urine RBC <5 /HPF (None Seen); Urine Urobilinogen 1+ (Normal); Urine WBC <5 /HPF (<5); Urine pH 5.5 (5.0-7.0)
--- NOTE | 2023-12-24 21:46 | ER ---
Nurse's Notes [facility] Name: Ramon Thurman Age: 43 yrs Sex: Male : 1980 Arrival Date: 12/24/2023 Time: 17:38 Bed 16 Private MD: Diagnosis: Suicidal ideations;Adjustment disorder with mixed anxiety and depressed mood Presentation: 12/23 17:42 Chief complaint:. Chief complaint: per PD he was toned out as patient's son called and me1 said patient took an unknown amount of pills in an attempt to kill himself. There were empty pill bottles that were a steroid and hydrocodone but the patient said that is not what he took. He reports taking 2 small orange pills. KALLI given by Officer Pedrito. Coronavirus screen: Vaccine status: Patient reports being unvaccinated. Ebola Screen: No symptoms or risks identified at this time. Initial Sepsis Screen: Does the patient meet any 2 criteria? No. Patient's initial sepsis screen is negative. Does the patient have a suspected source of infection? No. Patient's initial sepsis screen is negative. Risk Assessment: Do you want to hurt yourself or someone else? Patient reports desire/thoughts of hurting themselves or someone else. Provider notified. Other: took pills wanting to . Onset of symptoms was December 24, 2023. 17:42 Method Of Arrival: Law Enforcement: [place] [employer] me1 17:42 Acuity: MORRIS 2 me1 Triage Assessment: 17:49 General: Appears comfortable, well developed, well nourished, Behavior is flat, Reports me1 took 2 pills that he does not know the identity of because he was stressed out about his leaving him. Pain: Denies pain. EENT: No signs and/or symptoms were reported regarding the EENT system. Neuro: Level of Consciousness is awake, alert, obeys commands, Oriented to person, place, time, situation, Appropriate for age. Cardiovascular: Capillary refill < 3 seconds Patient's skin is warm and dry. Respiratory: Airway is patent Respiratory effort is even, unlabored, Respiratory pattern is regular, symmetrical. GI: No signs and/or symptoms were reported involving the gastrointestinal system. : No signs and/or symptoms were reported regarding the genitourinary system. Derm: Skin is intact, is healthy with good turgor, Skin is pink, warm \\T\\ dry. Musculoskeletal: No signs and/or symptoms reported regarding the musculoskeletal system. Historical: - Allergies: 17:49 No Known Allergies; me1 - Home Meds: 17:49 None [Active]; me1 - PMHx: 17:49 None; me1 - PSHx: 17:49 None; me1 - Immunization history:: Adult Immunizations up to date. - Infectious Disease History:: Denies. - Social history:: Smoking status: Patient reports the use of cigarette tobacco products, cigars. Screenin:19 [facility] ED Fall Risk Assessment (Adult) History of falling in the last 3 months, ky1 including since admission No falls in past 3 months (0 pts) Confusion or Disorientation No (0 pts) Intoxicated or Sedated No (0 pts) Impaired Gait No (0 pts) Mobility Assist Device Used No (0 pt) Altered Elimination No (0 pt) Score/Fall Risk Level 0 - 2 = Low Risk Maintained a safe environment, Provided non-skid footwear, Hourly rounding (assess needs \\T\\ fall precautionary measures) done. Abuse screen: Denies threats or abuse. Nutritional screening: No deficits noted. Tuberculosis screening: No symptoms or risk factors identified. Assessment: 17:51 General: See triage assessment. . Pain: Denies pain. ky1 21:00 General: [facility] staff at bedside.. me1 Psych: 17:51 [facility] Suicide Severity Screening: In the past month, have you wished you were me1 or wished you could go to sleep and not wake up? Patient responds "No." Patient denies wanting to kill himself. He reports that he took 2 pills that he does not know the identity of because he was stressed out about his leaving him. "In the past month, have you actually had any thoughts of killing yourself?" Patient responds "no." Patient denies wanting to kill himself. He reports that he took 2 pills that he does not know the identity of because he was stressed out about his leaving him. "In your lifetime, have you ever done anything, started to do anything, or prepared to do anything to end your life?" Patient responds "no.". Subjective: Patient's mood is sad, Delusions are denied, Hallucinations are denied Having thoughts of suicide. Plan for suicide is took pills in an attempt to kill himself. Objective: Patient is cooperative, Speech is normal, Affect is appropriate. Interventions: Removed personal items and placed in bag. 18:17 Safety Checks: Personal items have been removed. Pt has been placed in a hallway [facility] bed/chair. Door is open. No visitors are present at this time. Pt denies substance abuse. Commitment: Patient will be an involuntary commitment. Commitment papers completed. KALLI given by Officer Pedrito with [employer]. Vital Signs: 17:42 Weight 129.27 kg; Height 5 ft. 10 in. ; Pain 0/10; me1 17:42 BP 132 / 78; Pulse 91; Resp 18; Temp 98.2; Pulse Ox 100% on R/A; jr12 19:00 BP 135 / 74; Pulse 88; Resp 18; Temp 97.3; Pulse Ox 99% on R/A; vk 21:50 BP 147 / 76; Pulse 96; Resp 17; Temp 97.6; Pulse Ox 100% on R/A; vk 17:42 Body Mass Index 40.89 (129.27 kg, 177.8 cm) ky1 17:42 Pain Scale: Adult [facility] ED Course: 17:40 Patient arrived in ED. me1 17:42 Preeti Flores, RN is Primary Nurse. me1 17:44 David Melgar MD is Attending Physician. [facility] 17:49 Triage completed. me1 17:49 Arm band placed on Patient placed in an exam room. me1 18:13 Initial lab(s) drawn, by ky, sent to lab. Urine collected: clean catch specimen, [facility] cloudy, EKG done, by ED staff, reviewed by David Melgar MD. Inserted saline lock: 20 gauge in left antecubital area, using aseptic technique. 18:16 Acetaminophen Sent. me1 18:16 Basic Metabolic Panel Sent. me1 18:16 CBC with Diff Sent. me1 18:16 ETOH Level Sent. me1 18:16 Hepatic Function Sent. me1 18:16 PT-INR Sent. me1 18:16 Ptt, Activated Sent. me1 18:16 Salicylate Sent. me1 18:17 Urinalysis w/ reflexes Sent. me1 18:17 Urine Drug Screen Sent. me1 18:19 Patient has correct armband on for positive identification. Bed in low position. Call [facility] light in reach. Provided Education on: POC. Verbalized understanding. . 18:19 No provider procedures requiring assistance completed. me1 18:51 Called [facility] for pt evaluation. rv1 20:56 Bren Jackson F[facility]-C [facility] kb 21:45 Vadim Martínez MD is Referral Physician. kb 21:52 IV discontinued, intact, bleeding controlled, No redness/swelling at site. Pressure me1 dressing applied. Administered Medications: 18:16 Drug: NS 0.9% IV 1000 ml IV at 1 bolus Per protocol; 1000 mL bolus Route: IV; Rate: 1 me1 bolus; Site: left antecubital; 21:46 Follow up: Response: No adverse reaction; IV Status: Completed infusion; IV Intake: me1 1000ml Medication: 21:12 VIS not applicable for this client. me1 Intake: 21:46 IV: 1000ml; Total: 1000ml. me1 Outcome: 21:45 Discharge ordered by MD. kb 21:52 Discharged to home ambulatory, me1 21:52 Condition: stable 21:52 Discharge instructions given to patient, Instructed on discharge instructions, follow up and referral plans. Demonstrated understanding of instructions, follow-up care, 21:52 Patient left the ED. me1 Signatures: Bren Jackson FNP-C LOCKER OPERATOR-Ckb David Melgar MD MD cha Villegas, Rebecca rv1 Preeti Flores RN RN me1 Stephanie Dorsey jr12 Edyta Bates Corrections: (The following items were deleted from the chart) 19:50 19:09 BP 135 / 74; Pulse 18bpm; Resp 88bpm; Pulse Ox 99% RA; Temp 96.3F; vk vk 19:51 19:09 BP 135 / 74; Pulse 88bpm; Resp 18bpm; Pulse Ox 99% RA; Temp 97.3F; vk vk 21:12 17:49 General: Appears comfortable, well developed, well nourished, Behavior is flat, me1 Reports took 2 pills in an attempt to kill himself. me1 21:16 17:51 [place] Suicide Severity Screening: In the past month, have you wished you were me1 or wished you could go to sleep and not wake up? Patient responds "yes." "In the past month, have you actually had any thoughts of killing yourself?" Patient responds "yes." "In your lifetime, have you ever done anything, started to do anything, or prepared to do anything to end your life?" Patient responds "no." me1
--- NOTE | 2023-12-24 21:46 | EDPHYS ---
Physician Documentation [facility] Name: Ramon Thurman Age: 43 yrs Sex: Male : 1980 Arrival Date: 12/24/2023 Time: 17:38 Bed 16 Private MD: ED Physician David Melgar HPI: 12/23 18:51 This 43 yrs old Male presents to ER via Law Enforcement with complaints of [facility] Suicidal Ideation. 18:51 The patient presents to the emergency department with depression, a history of a [facility] suicide gesture, suicide ideation. Onset: The symptoms/episode began/occurred just prior to arrival. Past psychiatric history: Prior diagnosis: no previous psychiatric diagnosis known. Associated signs and symptoms: The patient has no apparent associated signs or symptoms. Severity of symptoms: At their worst the symptoms were very mild in the emergency department the symptoms are unchanged. The patient has not experienced similar symptoms in the past. Historical: - Allergies: 17:49 No Known Allergies; me1 - Home Meds: 17:49 None [Active]; me1 - PMHx: 17:49 None; me1 - PSHx: 17:49 None; me1 - Immunization history:: Adult Immunizations up to date. - Infectious Disease History:: Denies. - Social history:: Smoking status: Patient reports the use of cigarette tobacco products, cigars. ROS: 18:52 Constitutional: Negative for fever, chills, and weight loss, Eyes: Negative for injury, erna pain, redness, and discharge, ENT: Negative for injury, pain, and discharge, Neck: Negative for injury, pain, and swelling, Respiratory: Negative for shortness of breath, cough, wheezing, and pleuritic chest pain, Abdomen/GI: Negative for abdominal pain, nausea, vomiting, diarrhea, and constipation, Back: Negative for injury and pain, : Negative for injury, bleeding, discharge, and swelling, MS/Extremity: Negative for injury and deformity, Skin: Negative for injury, rash, and discoloration, Neuro: Negative for headache, weakness, numbness, tingling, and seizure, Psych: Negative for depression, anxiety, suicide ideation, homicidal ideation, and hallucinations, Allergy/Immunology: Negative for hives, rash, and allergies, Endocrine: Negative for neck swelling, polydipsia, polyuria, polyphagia, and marked weight changes, Hematologic/Lymphatic: Negative for swollen nodes, abnormal bleeding, and unusual bruising, 18:52 Cardiovascular: Negative for chest pain, palpitations, and edema, 18:52 Cardiovascular: Positive for chest pain, palpitations, 18:52 MS/extremity: Negative for swelling, tenderness, 18:52 Psych: Negative for anxiety, depression, drug dependence, alcohol dependence, auditory hallucinations, visual hallucinations, homicidal ideation, insomnia, suicide gesture, suicidal ideation, acute changes, Exam: 18:52 Constitutional: This is a well developed, well nourished patient who is awake, alert, erna and in no acute distress. Head/Face: Normocephalic, atraumatic. Eyes: Pupils equal round and reactive to light, extra-ocular motions intact. Lids and lashes normal. Conjunctiva and sclera are non-icteric and not injected. Cornea within normal limits. Periorbital areas with no swelling, redness, or edema. ENT: Nares patent. No nasal discharge, no septal abnormalities noted. Tympanic membranes are normal and external auditory canals are clear. Oropharynx with no redness, swelling, or masses, exudates, or evidence of obstruction, uvula midline. Mucous membranes moist. Neck: Trachea midline, no thyromegaly or masses palpated, and no cervical lymphadenopathy. Supple, full range of motion without nuchal rigidity, or vertebral point tenderness. No Meningismus. Chest/axilla: Normal chest wall appearance and motion. Nontender with no deformity. No lesions are appreciated. Cardiovascular: Regular rate and rhythm with a normal S1 and S2. No gallops, murmurs, or rubs. Normal PMI, no JVD. No pulse deficits. Respiratory: Lungs have equal breath sounds bilaterally, clear to auscultation and percussion. No rales, rhonchi or wheezes noted. No increased work of breathing, no retractions or nasal flaring. Abdomen/GI: Soft, non-tender, with normal bowel sounds. No distension or tympany. No guarding or rebound. No evidence of tenderness throughout. Back: No spinal tenderness. No costovertebral tenderness. Full range of motion. Male : Normal genitalia with no discharge or lesions. Skin: Warm, dry with normal turgor. Normal color with no rashes, no lesions, and no evidence of cellulitis. MS/ Extremity: Pulses equal, no cyanosis. Neurovascular intact. Full, normal range of motion. Neuro: Awake and alert, GCS 15, oriented to person, place, time, and situation. Cranial nerves II-XII grossly intact. Motor strength 5/5 in all extremities. Sensory grossly intact. Cerebellar exam normal. Normal gait. Psych: Awake, alert, with orientation to person, place and time. Behavior, mood, and affect are within normal limits. 18:52 ECG was reviewed by the Attending Physician. Vital Signs: 17:42 Weight 129.27 kg; Height 5 ft. 10 in. ; Pain 0/10; me1 17:42 BP 132 / 78; Pulse 91; Resp 18; Temp 98.2; Pulse Ox 100% on R/A; jr12 19:00 BP 135 / 74; Pulse 88; Resp 18; Temp 97.3; Pulse Ox 99% on R/A; vk 21:50 BP 147 / 76; Pulse 96; Resp 17; Temp 97.6; Pulse Ox 100% on R/A; vk 17:42 Body Mass Index 40.89 (129.27 kg, 177.8 cm) me1 17:42 Pain Scale: Adult me1 MDM: 17:44 Patient medically screened. erna 18:55 Differential diagnosis: drug withdrawal. acute psychotic break, depression, psychosis erna secondary to non-compliance. Data reviewed: vital signs, nurses notes, lab test result(s), EKG. Consideration of Admission/Observation Escalation of care including admission/observation considered. I considered the following discharge prescriptions or medication management in the emergency department Medications were administered in the Emergency Department. See MAR. Independent interpretation of the following test(s) in the Emergency Department EKG: See my EKG interpretation above. Test considered but Not performed: X-ray: no cxr. Historians other than the Patient: Law enforcement: police well informed. Care significantly affected by the following chronic conditions: no hx, denies suicidal ideation. Counseling: I had a detailed discussion with the patient and/or guardian regarding the historical points, exam findings, and any diagnostic results supporting the discharge/admit diagnosis, lab results, the need for outpatient follow up, for definitive care, a psychiatrist. 21:45 [facility]. kb 12/23 17:45 Order name: Acetaminophen; Complete Time: 18:50 erna 12/23 17:45 Order name: Basic Metabolic Panel; Complete Time: 18:[address] [facility] 12/23 17:45 Order name: CBC with Diff; Complete Time: 18:[address] [facility] 12/23 17:45 Order name: ETOH Level; Complete Time: 18:[address] [facility] 12/23 17:45 Order name: Hepatic Function; Complete Time: 18:[address] [facility] 12/23 17:45 Order name: PT-INR; Complete Time: 18:[address] [facility] 12/23 17:45 Order name: Ptt, Activated; Complete Time: 18:[address] [facility] 12/23 17:45 Order name: Salicylate; Complete Time: 19:[address] [facility] 12/23 17:45 Order name: Urinalysis w/ reflexes; Complete Time: 18:[address] [facility] 12/23 17:45 Order name: Urine Drug Screen; Complete Time: 18:[address] [facility] 12/23 17:45 Order name: EKG - Nurse/Tech; Complete Time: 18:[address] [facility] 12/23 17:45 Order name: IV Saline Lock; Complete Time: 18:[address] [facility] 12/23 17:45 Order name: Labs collected and sent; Complete Time: 18:[address] [facility] 12/23 17:45 Order name: Suicide Precautions; Complete Time: 18:[address] [facility] 12/23 17:45 Order name: Suicide Screening ([place]); Complete Time: 18:16 erna EC:52 Rate is 102 beats/min. Rhythm is regular. QRS [place] is Normal. [place] interval is normal. erna QRS interval is normal. QT interval is normal. No Q waves. T waves are Normal. No ST changes noted. Clinical impression: Sinus tachycardia and No evidence of ischemia. Interpreted by me. Reviewed by me. Administered Medications: 18:16 Drug: NS 0.9% IV 1000 ml IV at 1 bolus Per protocol; 1000 mL bolus Route: IV; Rate: 1 me1 bolus; Site: left antecubital; 21:46 Follow up: Response: No adverse reaction; IV Status: Completed infusion; IV Intake: me1 1000ml Disposition Summary: 12/24/23 21:45 Discharge Ordered Notes: Location: Home kb Problem: new kb Symptoms: have improved kb Condition: Stable kb Diagnosis - Suicidal ideations kb - Adjustment disorder with mixed anxiety and depressed mood kb Followup: erna - With: Private Physician - When: 2 - 3 days - Reason: Recheck today's complaints, Continuance of care, Re-evaluation by your physician Followup: erna - With: Osiezagha, Vadim, MD - When: 2 - 3 days - Reason: Recheck today's complaints, Re-evaluation by your physician Discharge Instructions: - Discharge Summary Sheet erna - Adjustment Disorder, Adult erna - Suicidal Feelings: How to Help Yourself erna - Helping Someone Who is Suicidal erna - Stress, Adult erna - Supporting Someone With Anxiety erna - Managing Anxiety, Adult erna Forms: - Medication Reconciliation Form kb - Antibiotic Education kb - Prescription Opioid Use kb - Patient Portal Instructions kb - Leadership Thank You Letter kb - SBAR form rv1 Signatures: Dispatcher [employer] EDMS Bren Jackson, FOREIGN LEGAL CONSULTANT-C FOREIGN LEGAL CONSULTANT-David Ferreira MD MD cha Eddleman, Michelle, RN RN me1 Corrections: (The following items were deleted from the chart) 17:45 17:45 ACETAMINOPHEN+C.LAB.BRZ ordered. EDMS EDMS 17:45 17:45 BASIC METABOLIC PANEL+C.LAB.BRZ ordered. EDMS EDMS 17:45 17:45 CBC+H.LAB.BRZ ordered. EDMS EDMS 17:45 17:45 ETHANOL+C.LAB.BRZ ordered. EDMS EDMS 17:45 17:45 HEPATIC FUNCTION+C.LAB.BRZ ordered. EDMS EDMS 17:45 17:45 PROTIME (+INR)+COAG.LAB.BRZ ordered. EDMS EDMS 17:45 17:45 PTT, ACTIVATED+COAG.LAB.BRZ ordered. EDMS EDMS 17:45 17:45 SALICYLATE+C.LAB.BRZ ordered. EDMS EDMS 17:45 17:45 Urinalysis+U.LAB.BRZ ordered. EDMS EDMS 17:45 17:45 URINE DRUG SCREEN+UC.LAB.BRZ ordered. EDMS EDMS
[2023-12-24 22:21] VITALS: BP 147/76; TEMP 97.6; O2SAT 100
--- NOTE | 2023-12-27 13:26 | EKG ---
Test Date: 2023-12-24 Test Time: 18:11:48 Maxillofacial Surgeon: COLE MEASUREMENT RESULTS: Intervals: Rate: 102 VT: 144 QRSD: 92 QT: 334 QTc: 435 [place]: P: 34 VT: 144 QRS: 16 T: 22 INTERPRETIVE STATEMENTS: Sinus tachycardia Otherwise normal ECG Compared to ECG 10/31/2018 00:01:32 Sinus rhythm no longer present Electronically Signed On 12-27-23 13:18:35 CDT by Jaswinder Sheikh
== END 2023-12-24 21:52 | disposition home or self-care (01) ==
LOC: ER 17:38
DX: R45.851 Suicidal ideations (principal); F43.23 Adjustment disorder with mixed anxiety and depressed mood; Z72.0 Tobacco use
CPT/HCPCS: 96361; 85025; 81001; 80048; 36415; 85610; 80076; 85730; 80307; 96360; 99285; 80143; 80179; 82077; J7030; 93005